=== PATIENT | female | born 1965 | race Caucasian/White ===

== ENCOUNTER 2017-01-23 22:27 | Emergency (ER) | payer BC ==
[2017-01-23 22:38] VITALS: BP 118/66
[2017-01-23 23:49] LABS: Urine Appearance Cloudy; Urine Color Orange
[2017-01-24] MEDS ORDERED: Ciprofloxacin TAB* 500 MG PO ONE (00:31)
[2017-01-24] MEDS ORDERED: Ciprofloxacin TAB* 500 MG PO SCH (09:00)
--- NOTE | 2017-02-20 22:47 | ED ---
Bartolo Boyd Alfonso, scribed for Mike Alex MD on 01/24/17 at 0019 . GI/ HPI - HPI Summary HPI Summary: This patient is a 51 year old F presenting to [facility] accompanied by with a chief complaint of burning dysuria worse since earlier today. The patient rates the pain 8/10 in severity. Symptoms alleviated by nothing. Patient denies N/V, fever, and flank pain. She denies recent abx use. - History of Current Complaint Chief Complaint: EDUrogenitalProblems Time Seen by Provider: 01/23/17 23:32 Stated Complaint: POSSIBLE UTI Hx Obtained From: Patient Hx Last Menstrual Period: 1.5 years ago Onset/Duration: Still Present, Worse Since Timing: Constant Current Severity: Moderate Pain Intensity: 8 Pain Characteristics: Burning Associated Signs and Symptoms: Positive: Other: - Patient denies N/V, fever, and flank pain Alleviating Factor(s): Nothing - Allergy/Home Medications Allergies/Adverse Reactions: Allergies Allergy/AdvReac Type Severity Reaction Status Date / Time No Known Allergies Allergy Verified 01/23/17 22:38 PMH/Surg Hx/FS Hx/Imm Hx Endocrine/Hematology History: Denies: Hx Diabetes, Hx Thyroid Disease Cardiovascular History: Denies: Hx Hypertension Respiratory History: Denies: Hx Asthma, Hx Chronic Obstructive Pulmonary Disease (COPD) GI History: Denies: Hx Ulcer Sensory History: Reports: Hx Contacts or Glasses - WILL WEAR GLASSES DAY OF SURGERY Opthamlomology History: Reports: Hx Contacts or Glasses - WILL WEAR GLASSES DAY OF SURGERY - Surgical History Surgery Procedure, Year, and Place: 02/18 thyroidectomy 2004 Hx Anesthesia Reactions: No - Immunization History Date of Tetanus Vaccine: utd Date of Influenza Vaccine: utd Infectious Disease History: No Infectious Disease History: Denies: Hx Hepatitis, Hx Human Immunodeficiency Virus (HIV), Traveled Outside the [place] in Last 30 Days - Family History Known Family History: Negative: Cardiac Disease, Diabetes - Social History Alcohol Use: Rare Hx Substance Use: No Substance Use Type: Reports: None Hx Tobacco Use: No Smoking Status (MU): Never Smoked Tobacco Review of Systems Negative: Fever Negative: Vomiting, Nausea Positive: dysuria. Negative: flank pain All Other Systems Reviewed And Are Negative: Yes Physical Exam - Summary Physical Exam Summary: Appearance: Well-appearing, Well-nourished Skin: Warm, Dry, No rash Eyes: Normal, PERRL, EOMI, sclera anicteric ENT: Normal Neck: Supple, nontender Respiratory: Clear to auscultation Cardiovascular: S1, S2, no murmur, no rub, no gallop Abdomen: Soft, nontender, no organomegaly Bowel sounds: Present Musculoskeletal: Normal, Strength/ROM Intact, no edema, pulses symmetrical Neurological: Normal, A&Ox3, cranial nerves II-XII WNL, follows commands, gait not tested, sensation intact to pin and light touch Psychiatric: affect normal, behavior appropriate, dressed appropriately, judgment intact Triage Information Reviewed: Yes Vital Signs On Initial Exam: Initial Vitals Temp Pulse Resp BP Pulse Ox 98.2 F 81 14 118/66 98 01/23/17 22:35 01/23/17 22:35 01/23/17 22:35 01/23/17 22:35 01/23/17 22:35 Vital Signs Reviewed: Yes - [place]ono Coma Scale Coma Scale Total: 15 Diagnostics - Vital Signs Vital Signs Temp Pulse Resp BP Pulse Ox 01/23/17 22:35 98.2 F 81 14 118/66 98 - Laboratory Lab Results: Lab Results 01/23/17 Range/Units 22:50 Urine Color [place] Urine Appearance Cloudy Urine pH Pending Ur Specific [place] Pending Urine Protein Pending Urine Ketones Pending Urine Blood Pending Urine Nitrate Pending Urine Bilirubin Pending Urine Urobilinogen Pending Ur Leukocyte Esterase Pending Urine WBC (Auto) 3+(>20/hpf) H (Absent) Urine RBC (Auto) 3+(>10/hpf) H (Absent) Ur Squamous Epith Cells Present H (Absent) Urine Bacteria Absent (Absent) Urinalysis Comment Urine Glucose Pending Urine Ascorbic Acid Pending Lab Statement: Any lab studies that have been ordered have been reviewed, and results considered in the medical decision making process. GIGU Course/Dx - Course Assessment/Plan: In the ED course the patient was given Cipro. Patient will be discharged with prescription for Cipro and follow up from PCP. The patient is agreeable with this plan. - Diagnoses Provider Diagnoses: UTI (urinary tract infection) Discharge - Discharge Plan Condition: Good Disposition: HOME Prescriptions: Ciprofloxacin-Ciprofloxacin Hc [Ciprofloxacin ER 500 mg] 1 tab PO BID 4 Days #8 tab Patient Education Materials: Urinary Tract Infection in Women (ED) Referrals: Kamilah Painting MD [Primary Care Provider] - Additional Instructions: follow up with primary care provider to check sensitivities The documentation as recorded by the Bartolo reid Alfonso accurately reflects the service I personally performed and the decisions made by me, Mike Alex MD.
== END 2017-01-24 00:44 | disposition home or self-care (01) ==
LOC: ED 22:27
DX: N39.0 Urinary tract infection, site not specified (principal); R30.0 Dysuria
CPT/HCPCS: 81003; 81015; 99282; A9270-GY